=== PATIENT | female | born 1990 | race African-American/Black ===

== ENCOUNTER 2020-04-19 16:04 | Emergency (ER) | payer BC ==
[~2020-04-19] VITALS: Ht 162.6 cm; Wt 66.2 kg
[2020-04-19 16:14] VITALS: BP 131/67
--- NOTE | 2020-04-19 16:56 | NUR ---
CALLED L&D TO LOOK FOR PTS URINE
--- NOTE | 2020-04-19 16:57 | NUR ---
HR 168 BPM USING DOPPLER, RLQ
--- NOTE | 2020-04-19 16:57 | NUR ---
Female Monkey Trainer,MYSELF, accompanied female patient for Pelvic Exam WITH DR LOVETT.
--- NOTE | 2020-04-19 16:58 | NUR ---
DROPPED OFF BY L&D RN TO ER --PT IS 18 WKS APPROX. 2, 1 LIVING --LMP 12/20. NO HX OF MISSCARIAGES OR ABORTIONS. C/O SUDDEN ONSET OF PELVIC PRESSURE X 2 DAYS WITH MINIMAL WHITE DC. NO RECENT INJURIES DENIES AB PAIN OR N/V. PT ALERT AND AWAKE. VS STABLE. HX--ASTHMA RX--ALBUTEROL, SYMBICORT
--- NOTE | 2020-04-19 17:07 | NUR ---
PTS URINE THROWN AWAY BY L&D, PT GIVEN CUP OF WATER FOR ANOTHER SAMPLE
--- NOTE | 2020-04-19 17:28 | NUR ---
PT STATES SHE TOOK TYLENOL 1 HOUR PRIOR TO ARRIVAL, STATES SHE DOES NOT NEED PAIN MEDICATION NOW
[2020-04-19] MEDS ORDERED: AMMONIA AROMATIC 1 INHL INH ONE (17:51)
[2020-04-19 18:05] VITALS: BP 114/70
--- NOTE | 2020-04-19 18:05 | NUR ---
Patient discharged with v/s stable. Written and verbal after care instructions given and explained REGARDING LIGAMENT PAIN. Patient verbalized understanding. Ambulatory with steady gait. All questions addressed prior to discharge. Advised to follow up with PMD.
== END 2020-04-19 18:05 | disposition home or self-care (01) ==
LOC: MED 16:04 → EDSEX 16:04 → MED 18:05
DX: O26.899 Other specified pregnancy related conditions, unspecified trimester (principal); Z3A.18 18 weeks gestation of pregnancy
CPT/HCPCS: 81002; 81025; 99283; 99284